=== PATIENT | female | born 1965 | race Caucasian/White ===

== ENCOUNTER 2021-03-05 11:17 | Outpatient (CLI) | payer BC ==
[2021-03-06 00:17] LABS: SARS-CoV-2 PCR by NAA DETECTED (NotDetected)
== END 2021-03-05 11:18 | disposition home or self-care (01) ==
LOC: LABBT 11:17
PROVIDERS: ATTEND Specialist
DX: U07.1 COVID-19 (principal); Z01.812 Encounter for preprocedural laboratory examination; C56.9 Malignant neoplasm of unspecified ovary
CPT/HCPCS: U0003; U0005

== ENCOUNTER 2021-03-17 05:39 | Day surgery (SDC) | payer BC ==
[2021-03-05 13:24] VITALS: BMI 24.7
[2021-03-17] MEDS ORDERED: Ketorolac Tromethamine 30 MG/ML VIAL ONE (06:08)
[2021-03-17] MEDS ORDERED: Acetaminophen 500 MG TAB ONE (06:08)
[2021-03-17] MEDS ORDERED: Famotidine/PF 20 mg/2ml Vial ONE (06:20)
[2021-03-17] MEDS ORDERED: Fentanyl 100 MCG/2 ML VIAL ONE (06:20)
[2021-03-17] MEDS ORDERED: PROPOFOL 40 ML ONE (06:20)
[2021-03-17] MEDS ORDERED: Midazolam HCl 2 mg/2 ml Vial ONE (06:20)
[2021-03-17] MEDS ORDERED: Bupivacaine PF 0.5% 30 ML VIAL ONE (06:48)
[2021-03-17] MEDS ORDERED: Xylocaine 1% w/ Epi 1:100K 10 ML VIAL ONE (06:48)
[2021-03-17] MEDS ORDERED: ceFAZolin 2 GM/Dextrose 50 ML IVPB ONE (07:21)
[2021-03-17] MEDS ORDERED: PROPOFOL 200 MG/20 ML VIAL ONE (07:43)
[2021-03-17] MEDS ORDERED: Metoclopramide HCl 10 MG/2 ML VIAL ONE (07:43)
[2021-03-17] MEDS ORDERED: Lidocaine 1% PF 5 ML VIAL ONE (07:43)
[2021-03-17] MEDS ORDERED: Ondansetron PF 4 MG/2 ML Vial ONE (07:43)
== END 2021-03-17 09:55 | disposition home or self-care (01) ==
LOC: SDC 05:39
PROVIDERS: ATTEND Specialist
PROC: 0JH60WZ Insertion of Totally Implantable Vascular Access Device into Chest Subcutaneous Tissue and Fascia, Open Approach (ICD-10-PCS; principal; 2021-03-17)
PROC: 02HV33Z Insertion of Infusion Device into Superior Vena Cava, Percutaneous Approach (ICD-10-PCS; principal; 2021-03-17)
DX: C56.1 Malignant neoplasm of right ovary (principal); Z79.899 Other long term (current) drug therapy; Z88.8 Allergy status to other drugs, medicaments and biological substances; Z98.84 Bariatric surgery status
CPT/HCPCS: 71045; C1788; J0690; J1642; J1885; J2250; J2405; J2704; J2765; J3010; S0020; S0028